=== PATIENT | female | born 1995 | race Asian ===

== ENCOUNTER 2017-09-30 15:39 | Emergency (ER) | payer SELFPAY ==
[2017-09-30 15:45] VITALS: RESP 16
--- NOTE | 2017-09-30 17:52 | EDPHY ---
HPI/HX/ROS/PE/MDM Narrative: CHIEF COMPLAINT: Abdominal pain. HPI: This patient is a 21 year old female complaining of abdominal pain ongoing over the last two months, worsening in the last 2-3 days. The pain is sharp and localized primarily under her ribcage on the left. She endorses a "pulsating" sensation and occasional radiation to her back. She has an associated "bubble" sensation in her chest and lack of appetite. Today, she feels confused and dizzy. She has history of IV heroin use with shared needles. She denies fever, dysuria, vomiting, diarrhea, shortness of breath, or other associated symptoms. No history of abdominal surgery. REVIEW OF SYSTEMS: Aside from elements discussed in the HPI, a comprehensive 10-point review of systems was reviewed and is negative. PMH: Denies. SOCIAL HISTORY: History of illicit drug use (Heroin), quit two months ago. Recently moved to [place] 2 weeks ago from [place], [place]. PHYSICAL EXAM: General:Patient is alert, in no acute distress. Malodorous. ENT:Eyes are normal to inspection. ENT inspection normal. Neck: Normal inspection. Full range of motion. Respiratory:No respiratory distress. Breath sounds normal bilaterally. Cardiovascular: Regular rate and rhythm. Strong peripheral pulses. Normal cap refill. Abdomen: Mild left upper quadrant tenderness. There are no peritoneal signs. There are normal bowel sounds. Back: Normal to inspection. No tenderness to palpation. Skin: Normal color. No rash. Warm and dry. Extremities: Normal appearance. Full range of motion. Neuro: Oriented x3. Normal motor function. Normal sensory function. ED Course: 21 year old female presents with left upper abdominal pain ongoing for the last two months. Exam reveals mild left upper quadrant abdominal tenderness. IV established. Plan for labs including CBC, chemistries, BHCG. Plan for x-ray abdomen. Laboratory studies within normal limits. 19:05 Reviewed abdominal x-ray. Evidence of constipation. 19:47 Reassessed patient. Plan to discharge home in good condition. Follow up and return precautions discussed. She is comfortable with this plan. MDM: This is a young female with LUQ pain but a very reassuring exam. Her workup is negative, other than significant constipation which I think is likely the etiology of her discomfort. She agrees with plan to try laxatives at home and return for additional workup if this does not improve her symptoms. - Data Points Imaging Results: Imaging Impressions Abdomen X-Ray 09/30/17 17:44 Impression: Moderate constipation. Imaging: I viewed and interpreted images myself Laboratory Results: Laboratory Results 09/30/17 18:10 09/30/17 18:10 09/30/17 09/30/17 09/30/17 18:40 18:10 18:10 WBC RBC Hgb Hct MCV MCH MCHC RDW Plt Count MPV Neut % (Auto) Lymph % (Auto) Edgar % (Auto) Eos % (Auto) Baso % (Auto) Nucleat RBC Rel Count Absolute Neuts (auto) Absolute Lymphs (auto) Absolute Monos (auto) Absolute Eos (auto) Absolute Basos (auto) Absolute Nucleated RBC Immature Gran % Immature Gran # Sodium 145 mEq/L H mEq/L (134-144) Potassium 4.3 mEq/L mEq/L (3.5-5.2) Chloride 105 mEq/L mEq/L (97-110) Carbon Dioxide 26 mEq/l mEq/l (22-31) Anion Gap 14 mEq/L mEq/L (8-16) BUN 14 mg/dL mg/dL (7-23) Creatinine 0.7 mg/dL mg/dL (0.6-1.0) Estimated GFR > 60 Glucose 81 mg/dL mg/dL (70-100) Calcium 10.0 mg/dL mg/dL (8.5-10.4) Beta HCG, Qual NEGATIVE Urine Color YELLOW Urine Appearance HAZY Urine pH 5.0 (5.0-7.5) Ur Specific Edmond 1.018 (1.002-1.030) Urine Protein NEGATIVE (NEGATIVE) Urine Ketones NEGATIVE (NEGATIVE) Urine Blood NEGATIVE (NEGATIVE) Urine Nitrate NEGATIVE (NEGATIVE) Urine Bilirubin NEGATIVE (NEGATIVE) Urine Urobilinogen NEGATIVE EU EU (0.2-1.0) Ur Leukocyte Esterase NEGATIVE (NEGATIVE) Urine Glucose NEGATIVE (NEGATIVE) 09/30/17 18:10 WBC 7.49 10^3/uL 10^3/uL (3.80-9.50) RBC 4.89 10^6/uL 10^6/uL (4.18-5.33) Hgb 15.3 g/dL g/dL (12.6-16.3) Hct 44.8 % % (38.0-47.0) MCV 91.6 fL fL (81.5-99.8) MCH 31.3 pg pg (27.9-34.1) MCHC 34.2 g/dL g/dL (32.4-36.7) RDW 13.1 % % (11.5-15.2) Plt Count 187 10^3/uL 10^3/uL (150-400) MPV 9.1 fL fL (8.7-11.7) Neut % (Auto) 60.5 % % (39.3-74.2) Lymph % (Auto) 30.7 % % (15.0-45.0) Edgar % (Auto) 6.3 % % (4.5-13.0) Eos % (Auto) 1.5 % % (0.6-7.6) Baso % (Auto) 0.7 % % (0.3-1.7) Nucleat RBC Rel Count 0.0 % % (0.0-0.2) Absolute Neuts (auto) 4.54 10^3/uL 10^3/uL (1.70-6.50) Absolute Lymphs (auto) 2.30 10^3/uL 10^3/uL (1.00-3.00) Absolute Monos (auto) 0.47 10^3/uL 10^3/uL (0.30-0.80) Absolute Eos (auto) 0.11 10^3/uL 10^3/uL (0.03-0.40) Absolute Basos (auto) 0.05 10^3/uL 10^3/uL (0.02-0.10) Absolute Nucleated RBC 0.00 10^3/uL 10^3/uL (0-0.01) Immature Gran % 0.3 % % (0.0-1.1) Immature Gran # 0.02 10^3/uL 10^3/uL (0.00-0.10) Sodium Potassium Chloride Carbon Dioxide Anion Gap BUN Creatinine Estimated GFR Glucose Calcium Beta HCG, Qual Urine Color Urine Appearance Urine pH Ur Specific Edmond Urine Protein Urine Ketones Urine Blood Urine Nitrate Urine Bilirubin Urine Urobilinogen Ur Leukocyte Esterase Urine Glucose General Time Seen by Provider: 09/30/17 17:43 Initial Vital Signs: Initial Vital Signs Temperature (C) 36.5 C 09/30/17 15:41 Heart Rate 78 09/30/17 15:41 Respiratory Rate 16 09/30/17 15:41 Blood Pressure 135/81 H 09/30/17 15:41 O2 Sat (%) 99 09/30/17 15:41 O2 Delivery Mode Room Air Allergies/Adverse Reactions: No Known Allergies Allergy (Unverified 09/30/17 15:45) Home Medications: Medication Instructions Recorded NK [No Known Home Meds] 09/30/17 Departure - Departure Disposition: Home, Routine, Self-Care Clinical Impression: Abdominal pain, Constipation Condition: Good Instructions: Constipation (ED), Abdominal Pain (ED) Additional Instructions: 1. Follow up with your primary care provider for further evaluation of symptoms unresolved in 1-2 days. 2. Return to the emergency department for increased pain, uncontrollable vomiting or diarrhea, fever, or other worsening of condition. Referrals: Mily Ellsworth MD [Medical Doctor] - As per Instructions Report Scribed for: Miles Dunbar Report Scribed by: Gavi Ken Date of Report: 09/30/17 Time of Report: 18:33 Physician Review and Approval Statement: Portions of this note were transcribed by an ED scribe. I personally performed the history, physical exam, and medical decision making; and confirm the accuracy of the information in the transcribed note.
[2017-09-30 18:37] LABS: % IMMATURE GRANULYOCYTES 0.3 % (0.0-1.1); ABSOLUTE IMMATURE GRANULOCYTES 0.02 10^3/uL (0.00-0.10); ADD DIFF? NO; ADD MORPH? NO; ADD SCAN? NO; ATYPICAL LYMPHOCYTE FLAG 0 (0-99); FRAGMENT RBC FLAG 0 (0-99); HEMATOCRIT 44.8 % (38.0-47.0); HEMOGLOBIN 15.3 g/dL (12.6-16.3); LEFT SHIFT FLG 0 (0-99); LIPEMIA HEMOLYSIS FLAG 90 (0-99); MEAN CELL HEMOGLOBIN 31.3 pg (27.9-34.1); MEAN CELL HEMOGLOBIN CONCENTR. 34.2 g/dL (32.4-36.7); MEAN CELL VOLUME 91.6 fL (81.5-99.8); MEAN PLATELET VOLUME 9.1 fL (8.7-11.7); PLATELET CLUMPS FLAG 0 (0-99); PLATELET COUNT 187 10^3/uL (150-400); RED BLOOD CELL COUNT 4.89 10^6/uL (4.18-5.33); RED CELL DISTRIBUTION WIDTH 13.1 % (11.5-15.2)
[2017-09-30 18:50] LABS: ANION GAP 14 mEq/L (8-16); CARBON DIOXIDE 26 mEq/l (22-31); CHLORIDE 105 mEq/L (97-110); CREATININE 0.7 mg/dL (0.6-1.0); GLOMERULAR FILTRATION RATE > 60; GLUCOSE 81 mg/dL (70-100); POTASSIUM 4.3 mEq/L (3.5-5.2); SODIUM 145 mEq/L (134-144)
[2017-09-30 19:15] LABS: COLOR YELLOW; LEUKOCYTE ESTERASE,URINE NEGATIVE (NEGATIVE); NITRITE,URINE NEGATIVE (NEGATIVE)
[2017-09-30] MEDS ORDERED: MAGNESIUM CITRATE 300 ML BOTTLE PO ONE (19:54)
[2017-09-30 20:00] VITALS: BP 110/64; PULSE 57; TEMP 96.8; O2SAT 98
== END 2017-09-30 20:00 | disposition home or self-care (01) ==
DX: K59.00 Constipation, unspecified (principal)